=== PATIENT | male | born 1995 ===

== ENCOUNTER 2018-09-10 00:38 | Emergency (ER) | payer OTHER ==
[2018-09-10 01:17] VITALS: BMI 26.6
[2018-09-10 01:23] VITALS: BP 134/77; PULSE 75; RESP 18; TEMP 98.1; O2SAT 97
[2018-09-10] MEDS ORDERED: Tdap Vaccine 0.5 ml Vial (10-64 yrs) IM ONE ×2 (02:23→03:16)
--- NOTE | 2018-09-10 02:26 | ED PDOC ---
HPI: Wound Care - HPI Time Seen by Provider: 09/10/18 01:57 Chief Complaint (Nursing): Abnormal Skin Integrity Chief Complaint (Provider): finger laceration History Per: Patient History Of Present Illness: 22 y/o male presents for evaluation of laceration to right hand 4th digit sustained prior to arrival. Patient states he was at work cleaning the floor and when he pushed the power button on the right handle bar his hand grazed against metal electric box on the wall. Denies numbness/weakness right upper extremity, limitation of movement. Last Tetanus unknown Past Medical History Reviewed: Historical Data, Nursing Documentation, Vital Signs Vital Signs: Last Vital Signs Temp 98.1 F 09/10/18 01:17 Pulse 75 09/10/18 01:17 Resp 18 09/10/18 01:17 BP 134/77 09/10/18 01:17 Pulse Ox 97 09/10/18 01:17 - Medical History PMH: No Chronic Diseases - Surgical History Surgical History: No Surg Hx - Family History Family History: States: No Known Family Hx - Living Arrangements Living Arrangements: With Family - Allergies Allergies/Adverse Reactions: Allergies Allergy/AdvReac Type Severity Reaction Status Date / Time No Known Allergies Allergy Verified 09/10/18 01:17 Review of Systems ROS Statement: Except As Marked, All Systems Reviewed And Found Negative Musculoskeletal: Positive for: Hand Pain (right hand 4th digit laceration) Physical Exam - Reviewed Nursing Documentation Reviewed: Yes Vital Signs Reviewed: Yes - Physical Exam Appears: Positive for: Well, Non-toxic, No Acute Distress Pulses-Radial (L): 2+ Pulses-Radial (R): 2+ Extremity: Positive for: Normal ROM, Capillary Refill (<3 sec b/l UE), Other (1.5cm superficial laceration dorsal lateral aspect right hand 4th digit; no active bleeding. FROM. Distal NV/motor intact). Negative for: Deformity, Swelling - ECG O2 Sat by Pulse Oximetry: 97 - Progress ED Course And Treament: -Adacel IM -lac repair Procedure: Wound Repair - Time Performed Time Performed: 02:30 - Time Out Time Out: Side verified, Site verified, Patient ID confirmed - Consent Obtained Consent obtained: Verbal - Performed by Performed by: Mid-level Provider - Location Location:: Right Finger:: Ring Shape:: Linear Dimensions Length cm: 1.5cm Dimensions width cm: 0.2cm Depth:: Epidermis - Debris Debris:: None - Irrigated Irrigated with ml of normal saline: 150mL - Wound repair method [place]:: Tissue glue, Steri-strips (bandage, finger splint applied) - Muscle repiar layer closed with Muscle repair layer closed with:: Wound well approximated, Dressing applied, Tetanus ordered - Patient tolerated procedure Patient Tolerated Procedure:: Well Medical Decision Making Medical Decision Making: Patient educated on wound care, advised follow up PMD within 2-3 days Return precautions given Disposition - Clinical Impression Clinical Impression: Finger laceration - Patient ED Disposition Is Patient to be Admitted: No Counseled Patient/Family Regarding: Diagnosis, Need For Followup - Disposition Disposition: Routine/Home Disposition Time: 02:49 Condition: STABLE Instructions: Laceration Repair With Glue (DC) Forms: [employer] (Azeri), [facility] ED School/Work Excuse
== END 2018-09-10 03:22 | disposition home or self-care (01) ==
LOC: H.ER 00:38
DX: S61.214A Laceration without foreign body of right ring finger without damage to nail, initial encounter (principal); W26.8XXA Contact with other sharp object(s), not elsewhere classified, initial encounter; Y99.0 Civilian activity done for income or pay